=== PATIENT | female | born 1995 | race Caucasian/White ===

== ENCOUNTER 2017-05-23 10:51 | Emergency (ER) | payer OTHER ==
[~2017-05-23] VITALS: Ht 152.4 cm; Wt 43.6 kg
[~2017-05-23 10:51] MED LIST: ALORA0.025 MG/2 TD; ATARAX 10MG10 MG/TAB PO; ATARAX 25MG25 MG/TAB PO; ATARAX50 MG PO; BACTRIM DS 8001 TAB PO; BC PILLS; CIPRO 250MG TA250 MG PO; CLARITIN 1010 MG/TAB PO; EXCEDRIN TENSIO1 CAP PO; IBU600 MG PO; KETOROLAC10 MG PO; LORTAB 5/500 501 TAB PO; MACROBID 1100 MG/CAP PO; METHYL FOLATE; NAPROSYN500 MG PO; NORCO 325 MG-51 TAB PO; PREDNISONE20 MG PO; PROAIR HFA0.09 MG/AC IH; PROGESTERONE AL1 CRE TP; PYRIDIUM200 M1 PO; TUSS PO; URIBEL1 CAP PO; VIT D; VITAMIN D 50,1.25 MG PO; VITAMIN D5000 IU PO; ZOFRAN 4MG T4 MG/TAB PO; [UNRECOGNIZED DRUG - OTHER] BC; [UNRECOGNIZED DRUG - OTHER] PO; [UNRECOGNIZED DRUG - REMARK]
[2017-05-23 10:54] VITALS: BP 142/91; TEMP 99.5
[2017-05-23 11:51] LABS: STREP SCREEN NEGATIVE
[2017-05-23 11:58] LABS: INFLUENZA A NEGATIVE; INFLUENZA B NEGATIVE
[2017-05-23] MEDS ORDERED: PROAIR HFA0.09 MG/AC IH (12:39)
[2017-05-23] MEDS ORDERED: PREDNISONE20 MG PO (12:39)
[2017-05-23 12:51] VITALS: PULSE 120
== END 2017-05-23 12:52 | disposition home or self-care (01) ==
LOC: COL.ER 10:51
PROVIDERS: Nurse Practitioner
DX: J45.909 Unspecified asthma, uncomplicated (principal)

== ENCOUNTER → 2018-12-13 | Outpatient (CLI) | payer OTHER | LOC: COL.RAD 12-10 12:45 | DX: R59.0 Localized enlarged lymph nodes (principal) ==

== ENCOUNTER → 2021-09-06 | Outpatient (CLI) | payer BC | LOC: MC.RAD 14:00 | DX: N63.10 Unspecified lump in the right breast, unspecified quadrant (principal) ==

== ENCOUNTER 2023-10-23 10:34 | Inpatient (IN) | payer BC ==
[~2023-10-23] VITALS: Ht 149.9 cm; Wt 58.2 kg
[2023-10-23] VITALS (45 sets, daily range): BP systolic 105–139; BP diastolic 52–76; PULSE 61–93; TEMP 97.9–98.3
[~2023-10-23 10:34] MED LIST changes: +QUALITY CHOICE1 TA7
--- NOTE | 2023-10-23 10:40 | NUR ---
Pt arrived on unit ambulatory and with concerns for worsening contractions that started at 0730 this morning. Pt denies any leaking of fluid, reports some bloody show when using the bathroom and reports normal movement. EFM and toco monitors started. Vital signs SVE by this RN 80/-2. Pt also reports she was seen in the clinic yesterday with SVE 80/-2 and then seen in on the L&D unit last night with ctx and SVE 80/-2. Pt was admitted for labor but then ctx spaced out, Dr. Garcia offered to AROM or for pt to go home. Pt chose to go home but then woke up this morning stephanie again. Dr. Gonzalez notified. See physician notification for details. Plan of care for labor check reviewed with pt and at the bedside.
--- NOTE | 2023-10-23 11:20 | NUR ---
Pt off EFM to ambulate.
[2023-10-23] MEDS ORDERED: LR 1,000 ML IV SCH (12:30)
[2023-10-23] MEDS ORDERED: Naloxone 0.4 MG/ML VIAL IV PRN ×2 (13:00→23:00)
[2023-10-23] MEDS ORDERED: diphenhydrAMINE 25 MG CAP PO PRN (13:00)
[2023-10-23] MEDS ORDERED: diphenhydrAMINE 50 MG/ML 1 ML VIAL IV PRN (13:00)
[2023-10-23] MEDS ORDERED: ePHEDrine 50 MG/10 ML VIAL IV PRN (13:00)
[2023-10-23] MEDS ORDERED: Ondansetron 4 MG/2 ML VIAL IV PRN (13:00)
[2023-10-23 13:04] LABS: BASO % 0.4 % (0.0-2.0); EOS % 0.3 % (0.0-4.0); GRAN # 8.3 K/mm3 (1.4-6.5); GRAN % 73.5 % (42.2-75.2); HEMOGLOBIN 11.2 g/dl (12.5-16.0); LYMPH % 17.6 % (20.0-51.0); MEAN CELL VOLUME 93 fl (80.0-100.0); MEAN CORPUSCULAR HEMOGLOBIN 31 pg (27-31); MEAN CORPUSCULAR HGB CONC 34 g/dl (33.0-37.0); MEAN PLATELET VOLUME 10.9 fl (7.4-10.4); MONO # 0.9 K/mm3 (0.1-0.6); MONO % 7.8 % (1.7-9.3); PLATELET COUNT 182 K/mm3 (130-400); RED BLOOD COUNT 3.58 M/mm3 (4.10-5.30); REDCELL DISTRIBUTION WIDTH-CV 12.5 % (11.5-14.5)
[2023-10-23 13:06] LABS: HEMATOCRIT 33.3 % (37.0-47.0)
[2023-10-23] MEDS ORDERED: ROPivacaine PF 0.2% 200 ML IV ONE (13:13)
--- NOTE | 2023-10-23 13:31 | NUR ---
1320 ATA CHOU AT BEDSIDE. PROCEDURE EXPLAINED AND CONSENT OBTAINED. PATIENT SETUP FOR EPIDURAL. SPO2 MONITOR INTIATED. 1331 TEST DOSE ADMINISTERED. 1335 PATIENT ASSISTED TO WEDGE LEFT POSITION IN BED.
--- NOTE | 2023-10-23 14:10 | NUR ---
Dr. Gonzalez at the bedside. SVE /1 done and AROM at 1410 with clear fluid per . Pt tolerated well. EFM monitor adjusted. Plan of care reviewed with pt and . Call light within reach.
[2023-10-23] MEDS ORDERED: LR & Oxytocin 500 ML IV SCH (19:15)
[2023-10-23] MEDS ORDERED: traZODone 50 MG TAB PO PRN (21:00)
--- NOTE | 2023-10-23 22:29 | NUR ---
Live male fetus delivered by by Dr Gonzalez. Infant dried and bulb suctioned by Dr Gonzalez, placed on mother's abdomen and delayed cord clamping observed. After 3045 seconds, Dr Gonzalez clamps cord and FOB cuts cord. placed skin to skin with mother and care of infant assumed by Nursery RN. Dr Gonzalez repairs a 2nd degree laceration and right labial laceration. Pt repositioned and recovery started.
[2023-10-23] MEDS ORDERED: Witch Hazel 50% Pads Bulk TUB TP PRN (23:00)
[2023-10-23] MEDS ORDERED: Phenylephrine/Mineral Oil/Petrolatum 57 GM TUBE RC PRN (23:00)
[2023-10-23] MEDS ORDERED: Mag/Al Hydrox/Simeth Susp 30 ML CUP PO PRN (23:00)
[2023-10-23] MEDS ORDERED: oxyCODONE 5 MG TAB PO PRN (23:00)
[2023-10-23] MEDS ORDERED: Magnes Hydrox (MOM) 80 MG/ML 30 ML CUP PO PRN (23:00)
[2023-10-23] MEDS ORDERED: Measles/Mumps/Rubella Virus Vaccine Live w Diluent 0.5 ML VIAL SQ SCH (23:00)
[2023-10-23] MEDS ORDERED: Acetaminophen 500 MG TAB PO SCH (23:00)
[2023-10-23] MEDS ORDERED: Ibuprofen 600 MG TAB PO SCH (23:00)
[2023-10-23] MEDS ORDERED: Loratadine 10 MG TAB PO PRN (23:00)
[2023-10-24] VITALS (8 sets, daily range): BP systolic 107–134; BP diastolic 57–63; PULSE 62–85; TEMP 97.9–98.7
[2023-10-24] MEDS ORDERED: Sennosides/Docusate 8.6-50 MG TAB PO SCH (08:00)
[2023-10-24] MEDS ORDERED: IBU600 MG PO (10:03)
[2023-10-25 08:16] VITALS: BP 114/65; PULSE 65; TEMP 98
--- NOTE | 2023-10-25 13:40 | NUR ---
DISCHARGE INSTRUCTIONS REVIEWED WITH PT REGARDING FOLLOW-UP, S/S OF INFECTION, PAIN MANAGEMENT/MEDICATIONS, AND REASONS TO CALL/SEE PHYSICIAN. QUESTIONS INVITED AND ANSWERED. PT VERBALIZES UNDERSTANDING.
== END 2023-10-25 14:00 | disposition home or self-care (01) | DRG 807 ==
LOC: LDRO 10:34 → LDR 12:23 → OB 10-24 13:41
PROVIDERS: Obstetrics & Gynecology; ADMIT Obstetrics & Gynecology
PROC: 10E0XZZ Delivery of Products of Conception, External Approach (ICD-10-PCS; principal; 2023-10-23)
PROC: 0KQM0ZZ Repair Perineum Muscle, Open Approach (ICD-10-PCS; 2023-10-23)
PROC: 0UQMXZZ Repair Vulva, External Approach (ICD-10-PCS; 2023-10-23)
DX: O99.62 Diseases of the digestive system complicating childbirth (principal); Z37.0 Single live birth; K21.9 Gastro-esophageal reflux disease without esophagitis; O70.1 Second degree perineal laceration during delivery; O99.344 Other mental disorders complicating childbirth; F41.9 Anxiety disorder, unspecified; F32.A Depression, unspecified; Z3A.37 37 weeks gestation of pregnancy
CPT/HCPCS: J2590; J2795; J7120